=== PATIENT | female | born 1935 | race Caucasian/White ===

== ENCOUNTER 2021-08-13 09:40 | Inpatient (IN) | payer OTHER ==
[~2021-08-13] VITALS: Ht 147.3 cm; Wt 77.1 kg
[2021-08-13] MEDS ORDERED: TENORMIN50 M1 (10:15)
[2021-08-13] MEDS ORDERED: LOSARTAN-HCTZ1 EACH PO (10:15)
[2021-08-13] MEDS ORDERED: GLIMEPIRIDE2 MG PO (10:15)
[2021-08-13] MEDS ORDERED: TYLENOL ARTHRI650 MG (10:15)
[2021-08-13] MEDS ORDERED: TENORMIN25 MG (10:16)
== END 2021-08-20 17:39 | disposition home or self-care (01) | DRG 439 ==
LOC: ER 09:40 → MEDJ 19:07 → MEDI 19:07 → MEDJ 08-15 13:50
PROVIDERS: ADMIT Internal Medicine; ATTEND Internal Medicine
PROC: BW2110Z Computerized Tomography (CT Scan) of Abdomen and Pelvis using Low Osmolar Contrast, Unenhanced and Enhanced (ICD-10-PCS; 2021-08-13)
PROC: BF37ZZZ Magnetic Resonance Imaging (MRI) of Pancreas (ICD-10-PCS; principal; 2021-08-14)
DX: K85.80 Other acute pancreatitis without necrosis or infection (principal); K86.2 Cyst of pancreas; D37.9 Neoplasm of uncertain behavior of digestive organ, unspecified; K29.60 Other gastritis without bleeding; N28.1 Cyst of kidney, acquired; K42.9 Umbilical hernia without obstruction or gangrene; E11.9 Type 2 diabetes mellitus without complications; I10 Essential (primary) hypertension; E78.5 Hyperlipidemia, unspecified